=== PATIENT | female | born 1995 | race Two or more races ===

== ENCOUNTER 2018-04-15 12:45 | Inpatient (IN) | payer MEDICAID, OTHER ==
[~2018-04-15] VITALS: Ht 180.3 cm; Wt 142.9 kg
[2018-04-15 14:54] LABS: Urine Amorphous Crystal FEW /hpf (None Seen); Urine Bacteria FEW /hpf (None Seen); Urine Blood Negative /uL (Negative); Urine Mucus FEW (None Seen); Urine Specific Gravity 1.016 (1.001-1.035); Urine WBC 3 /hpf (0 - 5)
[2018-04-15 15:01] LABS: Alcohol, Urine < 3.0 mg/dL (0-5); Amphetamine Screen, Urine NEGATIVE (NEGATIVE); Barbiturate Scree,Urine NEGATIVE (NEGATIVE); Cannabinoid Screen, Urine NEGATIVE (NEGATIVE); Cocaine Screen, Urine NEGATIVE (NEGATIVE); Opiate Scree,Urine NEGATIVE (NEGATIVE); Phencyclidine Screen, Urine NEGATIVE (NEGATIVE)
[2018-04-15 15:04] LABS: Benzodiazephine Screen, Urine NEGATIVE (NEGATIVE)
[2018-04-15] MEDS ORDERED: LACT. RINGERS/OXYTOCIN 20UNITS 1,000 ML IV SCH (19:59)
[2018-04-15] MEDS ORDERED: LACTATED RINGER'S 1,000 ML IV SCH (19:59)
[2018-04-15] MEDS ORDERED: LIDOCAINE 2% (LOCAL ANESTH.) PF 5ml SDV ID ONE (20:00)
[2018-04-15] MEDS ORDERED: PHISODERM TOP SOLN 240ML BTL TOP PRN (20:00)
[2018-04-15] MEDS ORDERED: PENICILLIN G POT 5MIL/D5 50ML 50 ML IV ONE (20:00)
[2018-04-15] MEDS ORDERED: CARBOPROST TROMETHAMINE 250 MCG/1ML VIAL IM PRN (20:00)
[2018-04-15] MEDS ORDERED: WITCH HAZEL-GLYCERIN PAD TOP PRN (20:00)
[2018-04-15] MEDS ORDERED: METHYLERGONOVINE MALEATE 0.2 MG/ML AMP IM PRN (20:00)
[2018-04-15] MEDS ORDERED: DERMOPLAST 60ML BOTTLE TOP PRN (20:00)
[2018-04-15 21:37] LABS: Basophils # (auto) 0 uL; Basophils % (auto) 0.2 % (0.0-2.0); Eosinophils # (auto) 0 uL; Eosinophils % (auto) 0.4 % (0.0-7.0); Lymphocytes # (auto) 1.8 uL; Monocytes # (auto) 0.5 uL; Neutrophils # (auto) 3.5 uL
[2018-04-15 21:39] LABS: Hematocrit 34.8 % (36.0-46.0); Hemoglobin 11.5 g/dL (12.2-16.2); Lymphocytes % (auto) 30.8 % (10.0-50.0); Mean Corpuscular Hemoglobin 25.7 pg (28.0-32.0); Mean Corpuscular Hgb Conc. 32.9 g/dL (32.0-36.0); Monocytes % (auto) 8.2 % (0.0-12.0); Neutrophils % (auto) 60.4 % (37.0-80.0); Nucleated Red Blood Cells % 0.3 %; Platelet Count (auto) 205 10^3/uL (140-450); Red Blood Cells 4.47 10^6/uL (4.0-5.20); Red Cell Distribution Width 15.7 % (11.8-14.3); White Blood Cell 5.8 10^3/uL (4.4-10.8)
[2018-04-15 21:54] LABS: Albumin 2.8 g/dL (3.4-5.0); BUN/Creatinine Ratio 19.2; Calcium 8.6 mg/dL (8.5-10.1); Potassium 3.6 mmol/L (3.5-5.1)
[2018-04-15 21:57] LABS: Bilirubin, Total 0.5 mg/dL (0.2-1.0); INR 0.89 (0.9-1.15); Partial Thromboplastin Time 28.5 sec (23.78-33.04); Prothrombin Time 9.6 sec (9.27-12.13); Total Protein 7.2 g/dL (6.4-8.2)
[2018-04-15] MEDS ORDERED: BUTORPHANOL TARTRATE 2 MG/1 ML VIAL IV PRN (23:00)
[2018-04-16] MEDS: PENICILLIN G POTASSIUM 2,500,000 UNITS in D5W 5% 50 ML IV SCH ×6 (01:12→23:50)
[2018-04-17] VITALS (15 sets, daily range): BP systolic 93–127; BP diastolic 49–86
[2018-04-17 06:06] LABS: RPR Non Reactive (Non Reactive); Rubella Antibodies, IgG 3.91 index (Immune >0.99)
[2018-04-17] MEDS: PENICILLIN G POTASSIUM 2,500,000 UNITS in D5W 5% 50 ML IV SCH ×3 (07:30→12:00)
[2018-04-17] MEDS ORDERED: SUCCINYLCHOLINE CHLORIDE 20 MG/ML 10ML VIAL IV ONE (07:54)
[2018-04-17] MEDS ORDERED: fentaNYL CITRATE 100 MCG/2 ML VL ONE (08:18)
[2018-04-17] MEDS ORDERED: ROCURONIUM 10MG/ML 10ML VIAL IV ONE (08:21)
[2018-04-17] MEDS: LACTATED RINGER'S 1,000 ML IV SCH ×2 (09:11→17:52)
[2018-04-17] MEDS ORDERED: ONDANSETRON HCL 4 MG/2 ML VIAL IV PRN (09:15)
[2018-04-17] MEDS ORDERED: MORPHINE SULFATE 4 MG/ML SYR/VIAL IV PRN (09:15)
[2018-04-17] MEDS ORDERED: ceFAZolin 1GM/50ML 50 ML IV SCH (09:15)
[2018-04-17] MEDS ORDERED: OXYTOCIN 10UNIT/ML 1ML VIAL ONE (09:33)
[2018-04-17] MEDS ORDERED: HYDROmorphone HCL 2 MG/ML VL ONE (10:05)
[2018-04-17] MEDS ORDERED: ePHEDrine SULFATE 50 MG/ML AMP IV PRN (10:15)
[2018-04-17] MEDS ORDERED: hydrALAZINE HCL 20 MG/ML VL IV PRN (10:15)
[2018-04-17] MEDS ORDERED: HYDROmorphone HCL 2 MG/ML VL IV PRN (10:15)
[2018-04-17] MEDS: KETOROLAC TROMETH 30 MG/ML 1ML VIAL IV PRN ×2 (11:00→17:53)
[2018-04-17] MEDS ORDERED: ALUM & MAG HYDROX-SIMETH LIQ(MAALOX) 30 ML PO PRN (12:30)
[2018-04-17] MEDS: ceFAZolin 1GM/50ML 50 ML IV SCH (16:20)
[2018-04-18] MEDS: ceFAZolin 1GM/50ML 50 ML IV SCH ×2 (00:18→08:04)
[2018-04-18] MEDS: KETOROLAC TROMETH 30 MG/ML 1ML VIAL IV PRN ×2 (00:18→06:19)
[2018-04-18] MEDS: LACTATED RINGER'S 1,000 ML IV SCH ×2 (02:00→08:04)
[2018-04-18 03:00] VITALS: BP 106/56
[2018-04-18] MEDS ORDERED: TETANUS-DIPTH-ACEL PERTUSSIS 0.5ML SYRG IM ONE (05:00)
[2018-04-18] MEDS ORDERED: INFLUENZA QUAD 2018-2019 0.5 ML SYRG IM ONE (05:00)
[2018-04-18 07:00] VITALS: BP 118/70
[2018-04-18 07:55] LABS: Basophils # (auto) 0 uL; Eosinophils # (auto) 0 uL; Lymphocytes # (auto) 1.3 uL; Mean Corpuscular Volume 78.4 fL (80.0-100.0); Monocytes # (auto) 0.7 uL; Red Cell Distribution Width 15.4 % (11.8-14.3); White Blood Cell 7.2 10^3/uL (4.4-10.8)
[2018-04-18 07:57] LABS: Basophils % (auto) 0.2 % (0.0-2.0); Eosinophils % (auto) 0.2 % (0.0-7.0); Hemoglobin 7.7 g/dL (12.2-16.2); Lymphocytes % (auto) 18.3 % (10.0-50.0); Mean Corpuscular Hemoglobin 26.4 pg (28.0-32.0); Mean Corpuscular Hgb Conc. 33.7 g/dL (32.0-36.0); Neutrophils # (auto) 5.1 uL; Neutrophils % (auto) 71.3 % (37.0-80.0); Platelet Count (auto) 173 10^3/uL (140-450); Red Blood Cells 2.93 10^6/uL (4.0-5.20)
[2018-04-18] MEDS ORDERED: FAMOTIDINE 20 MG TAB PO SCH (10:00)
[2018-04-18 11:00] VITALS: BP 119/67
[2018-04-18] MEDS: FERROUS SULFATE 325 MG TAB PO SCH ×2 (12:00→18:04)
[2018-04-18] MEDS ORDERED: HYDROcodone-ACET 5/325MG TAB PO PRN ×2 (12:15)
[2018-04-18] MEDS ORDERED: BISACODYL 10 MG RECT SUPP PR PRN (12:15)
[2018-04-18] MEDS: IBUPROFEN 800 MG TAB PO PRN (12:41)
[2018-04-18] MEDS: SIMETHICONE 80 MG CHEWABLE TABLET PO SCH ×2 (12:42→21:44)
[2018-04-18 15:00] VITALS: BP 109/55
[2018-04-18] MEDS: PIPERACILLIN-TAZOB 3.375GM 100 ML IV SCH ×2 (15:41→21:34)
[2018-04-18] MEDS ORDERED: ACETAMINOPHEN 325 MG TAB PO PRN (18:30)
[2018-04-18 19:15] VITALS: BP 132/70
[2018-04-18 21:23] LABS: Urine Bacteria FEW /hpf (None Seen); Urine Blood 3+ /uL (Negative); Urine Specific Gravity 1.005 (1.001-1.035); Urine WBC 24 /hpf (0 - 5)
[2018-04-18] MEDS: DOCUSATE SOD 100 MG CAP PO SCH (21:44)
[2018-04-18 23:20] VITALS: BP 129/74
[2018-04-19 03:20] VITALS: BP 115/60
[2018-04-19] MEDS: PIPERACILLIN-TAZOB 3.375GM 100 ML IV SCH ×4 (04:00→21:39)
[2018-04-19] MEDS: SIMETHICONE 80 MG CHEWABLE TABLET PO SCH ×4 (06:00→21:38)
[2018-04-19 07:00] VITALS: BP 131/80
[2018-04-19 07:27] LABS: Basophils # (auto) 0 uL; Basophils % (auto) 0.1 % (0.0-2.0); Eosinophils # (auto) 0 uL; Eosinophils % (auto) 0.1 % (0.0-7.0); Lymphocytes # (auto) 0.8 uL; Mean Corpuscular Volume 78.6 fL (80.0-100.0); Monocytes # (auto) 0.6 uL; Neutrophils # (auto) 3.5 uL; Red Cell Distribution Width 15.3 % (11.8-14.3)
[2018-04-19 07:30] LABS: Hematocrit 22.6 % (36.0-46.0); Hemoglobin 7.5 g/dL (12.2-16.2); Lymphocytes % (auto) 17.2 % (10.0-50.0); Mean Corpuscular Hemoglobin 25.9 pg (28.0-32.0); Mean Corpuscular Hgb Conc. 32.9 g/dL (32.0-36.0); Monocytes % (auto) 11.8 % (0.0-12.0); Neutrophils % (auto) 70.8 % (37.0-80.0); Platelet Count (auto) 174 10^3/uL (140-450); Red Blood Cells 2.88 10^6/uL (4.0-5.20); White Blood Cell 4.9 10^3/uL (4.4-10.8)
[2018-04-19] MEDS: IBUPROFEN 800 MG TAB PO PRN ×2 (08:55→17:17)
[2018-04-19] MEDS: FERROUS SULFATE 325 MG TAB PO SCH ×3 (08:55→17:37)
[2018-04-19] MEDS: DOCUSATE CALCIUM 240 MG CAP PO SCH (10:01)
[2018-04-19] MEDS: DOCUSATE SOD 100 MG CAP PO SCH ×2 (10:01→21:38)
[2018-04-19 11:00] VITALS: BP 130/71
[2018-04-19] MEDS: ACETAMINOPHEN 325 MG TAB PO PRN (12:01)
[2018-04-19 15:00] VITALS: BP 121/72
[2018-04-19 19:00] VITALS: BP 127/71
[2018-04-19] MEDS ORDERED: PREN-96 PO (20:50)
[2018-04-19] MEDS ORDERED: FERR-20 PO (20:50)
[2018-04-19] MEDS ORDERED: CALC667C PO (20:50)
[2018-04-19 23:06] VITALS: BP 115/65
[2018-04-20 03:00] VITALS: BP 129/82
[2018-04-20] MEDS: PIPERACILLIN-TAZOB 3.375GM 100 ML IV SCH ×4 (03:40→22:05)
[2018-04-20] MEDS: ACETAMINOPHEN 325 MG TAB PO PRN (03:48)
[2018-04-20] MEDS: SIMETHICONE 80 MG CHEWABLE TABLET PO SCH ×4 (06:00→22:05)
[2018-04-20 06:51] VITALS: BP 135/89
[2018-04-20] MEDS: IBUPROFEN 800 MG TAB PO PRN ×2 (09:31→20:15)
[2018-04-20] MEDS: FERROUS SULFATE 325 MG TAB PO SCH ×3 (09:31→17:43)
[2018-04-20] MEDS: DOCUSATE CALCIUM 240 MG CAP PO SCH (09:31)
[2018-04-20] MEDS: DOCUSATE SOD 100 MG CAP PO SCH ×2 (09:32→22:05)
[2018-04-20 11:00] VITALS: BP 125/80
[2018-04-20 15:00] VITALS: BP 129/75
[2018-04-20 19:00] VITALS: BP 138/79
[2018-04-20 22:52] VITALS: BP 121/61
[2018-04-21 02:52] VITALS: BP 126/76
[2018-04-21] MEDS: PIPERACILLIN-TAZOB 3.375GM 100 ML IV SCH ×2 (04:20→10:00)
[2018-04-21 07:10] VITALS: BP 133/79
[2018-04-21] MEDS: FERROUS SULFATE 325 MG TAB PO SCH (07:59)
[2018-04-21] MEDS: SIMETHICONE 80 MG CHEWABLE TABLET PO SCH (08:06)
[2018-04-21] MEDS: DOCUSATE SOD 100 MG CAP PO SCH (09:35)
[2018-04-21] MEDS: DOCUSATE CALCIUM 240 MG CAP PO SCH (09:35)
== END 2018-04-21 10:45 | disposition home or self-care (01) | DRG 540 ==
LOC: OBSVTOIN 12:45 → LDRP 12:45
PROVIDERS: ADMIT Obstetrics & Gynecology; ATTEND Obstetrics & Gynecology
PROC: 3E0P7VZ Introduction of Hormone into Female Reproductive, Via Natural or Artificial Opening (ICD-10-PCS; 2018-04-17)
PROC: 10D00Z1 Extraction of Products of Conception, Low, Open Approach (ICD-10-PCS; principal; 2018-04-17 08:04)
DX: O48.0 Post-term pregnancy (principal); E66.01 Morbid (severe) obesity due to excess calories; O99.214 Obesity complicating childbirth; O62.1 Secondary uterine inertia; O99.824 Streptococcus B carrier state complicating childbirth; O76 Abnormality in fetal heart rate and rhythm complicating labor and delivery; G89.29 Other chronic pain; M54.9 Dorsalgia, unspecified; O75.89 Other specified complications of labor and delivery; Z37.0 Single live birth
CPT/HCPCS: 36415; 51702; 59025; 71046; 76805; 76818; 80053; 80307; 81001; 81002; 85025; 85610; 85730; 86592; 86762; 86850; 86900; 86901; 87040; 87340; 90715; 94760; 94762; 96361; 96365; 96366; 96374; A6257; J0330; J0690; J1885; J2001; J2540; J2543; J2590; J7060

== ENCOUNTER 2019-04-07 17:05 | Inpatient (IN) | payer MEDICAID, OTHER ==
[~2019-04-07] VITALS: Ht 180.3 cm; Wt 141.4 kg
[~2019-04-07 17:05] MED LIST: CALC667C PO; FERR-20 PO; PREN-96 PO
[2019-04-07 19:10] LABS: Urine WBC None Seen /hpf (0 - 5)
[2019-04-07 19:28] LABS: Basophils # (auto) 0 uL
[2019-04-07 19:30] LABS: Basophils % (auto) 0.3 % (0.0-2.0); Eosinophils # (auto) 0.1 uL; Eosinophils % (auto) 0.6 % (0.0-7.0); Hematocrit 38.1 % (36.0-46.0); Lymphocytes # (auto) 1.7 uL; Mean Corpuscular Hemoglobin 23.6 pg (28.0-32.0); Mean Corpuscular Hgb Conc. 31.6 g/dL (32.0-36.0); Mean Corpuscular Volume 74.8 fL (80.0-100.0); Monocytes # (auto) 0.7 uL; Monocytes % (auto) 6.5 % (0.0-12.0); Neutrophils # (auto) 7.9 uL; Neutrophils % (auto) 76.6 % (37.0-80.0); Nucleated Red Blood Cells % 0.1 %; Platelet Count (auto) 297 10^3/uL (140-450); Red Blood Cells 5.09 10^6/uL (4.0-5.20); White Blood Cell 10.4 10^3/uL (4.4-10.8)
[2019-04-07 19:30] LABS: Urine Bacteria NONE SEEN /hpf (None Seen); Urine Blood Negative /uL (Negative); Urine Specific Gravity 1.021 (1.001-1.035)
[2019-04-07 19:48] LABS: Calcium 9.4 mg/dL (8.5-10.1)
[2019-04-07 19:50] LABS: Bilirubin, Total 0.7 mg/dL (0.2-1.0); Total Protein 8.3 g/dL (6.4-8.2)
[2019-04-07] MEDS ORDERED: MORPHINE SULFATE 4 MG/ML SYR/VIAL IV ONE (20:00)
[2019-04-07] MEDS ORDERED: ONDANSETRON HCL 4 MG/2 ML VIAL IV ONE (20:00)
[2019-04-07] MEDS ORDERED: FAMOTIDINE (10MG/ML) 2ML VL IV ONE (20:00)
[2019-04-07] MEDS ORDERED: cefTRIAXone 1GM/50ML D5W 50 ML IV ONE (22:30)
[2019-04-07] MEDS ORDERED: NITROGLYCERIN 0.4 MG SL TAB SL PRN (22:30)
[2019-04-07] MEDS ORDERED: ONDANSETRON HCL 4 MG/2 ML VIAL IV PRN (22:30)
[2019-04-07] MEDS ORDERED: HYDROcodone-ACET 5/325MG TAB PO PRN (22:30)
[2019-04-07] MEDS ORDERED: MORPHINE SULF INJ 2 MG/ML SYRINGE 1ML IV PRN (22:30)
[2019-04-07] MEDS ORDERED: TEMAZEPAM 15 MG CAP PO PRN (22:30)
--- NOTE | 2019-04-07 23:25 | NUR ---
[facility] admit from [facility] admitted to [facility] after SBAR received. Patient oriented to ZOË ARELLANO RN primary RN, unit, room, bed, and unit policies regarding patient care and visiting hours. Patient weighed by bedscale and encouraged to call if they need something. All questions and concerns addressed, patient verbalized understanding.
[2019-04-08 06:18] VITALS: BP 92/47
[2019-04-08] MEDS ORDERED: ACETAMINOPHEN 325 MG TAB PO PRN (06:56)
[2019-04-08 07:47] LABS: Basophils # (auto) 0 uL; Eosinophils # (auto) 0.1 uL; Hemoglobin 11.4 g/dL (12.2-16.2); Mean Corpuscular Hemoglobin 24.1 pg (28.0-32.0); Monocytes # (auto) 0.4 uL; Nucleated Red Blood Cells % 0.1 %; Red Blood Cells 4.74 10^6/uL (4.0-5.20); White Blood Cell 5.5 10^3/uL (4.4-10.8)
[2019-04-08 07:48] LABS: Basophils % (auto) 0.8 % (0.0-2.0); Eosinophils % (auto) 2.4 % (0.0-7.0); Hematocrit 34.6 % (36.0-46.0); Lymphocytes # (auto) 2.3 uL; Mean Corpuscular Volume 72.9 fL (80.0-100.0); Monocytes % (auto) 7.2 % (0.0-12.0); Neutrophils # (auto) 2.7 uL; Neutrophils % (auto) 48.6 % (37.0-80.0); Platelet Count (auto) 272 10^3/uL (140-450); Red Cell Distribution Width 15.7 % (11.8-14.3)
--- NOTE | 2019-04-08 08:00 | NUR ---
Opening Shift Note Assumed care of patient, awake and alert. No S/S of distress/SOB or pain. Instructed on POC and to call for assist PRN, will continue to monitor for changes Q1hr and PRN.
[2019-04-08 08:03] LABS: Albumin 3.5 g/dL (3.4-5.0); Calcium 8.9 mg/dL (8.5-10.1); Potassium 4.1 mmol/L (3.5-5.1)
[2019-04-08 08:06] LABS: Bilirubin, Total 0.5 mg/dL (0.2-1.0); Total Protein 7.8 g/dL (6.4-8.2)
[2019-04-08 09:00] VITALS: BP 87/46
[2019-04-08 09:01] VITALS: BP 112/58
[2019-04-08] MEDS: cefTRIAXone 1GM/50ML D5W 50 ML IV SCH (09:02)
[2019-04-08] MEDS: FAMOTIDINE 20 MG TAB PO SCH ×2 (09:02→21:32)
[2019-04-08 09:47] LABS: Partial Thromboplastin Time 26.5 sec (23.64-32.05)
--- NOTE | 2019-04-08 10:26 | NUR ---
Received a call from SARAH (MRI) stated MRCP machine is unable to accommodate patient, recommended HIDA scan. Will notify hospitalist.
--- NOTE | 2019-04-08 10:51 | NUR ---
Dr. Keyes made aware of patient needs HIDA scan.
[2019-04-08 12:37] VITALS: BP 100/57
[2019-04-08] MEDS ORDERED: MIDAZOLAM HCL 1MG/1ML-2 ML VIAL ONE (12:58)
[2019-04-08] MEDS ORDERED: MEPERIDINE HCL (50 MG/ML) 1 ML VIAL ONE (12:58)
[2019-04-08] MEDS ORDERED: ROCURONIUM 10MG/ML 10ML VIAL IV ONE (12:58)
[2019-04-08] MEDS ORDERED: SODIUM CHLORIDE LOCK 10 ML ONE (12:58)
[2019-04-08] MEDS ORDERED: fentaNYL CITRATE 100 MCG/2 ML VL ONE (12:58)
[2019-04-08] MEDS ORDERED: ONDANSETRON HCL 4 MG/2 ML VIAL ONE (12:58)
[2019-04-08] MEDS ORDERED: fentaNYL CITRATE 100 MCG/2 ML VL IV PRN (13:30)
[2019-04-08] MEDS ORDERED: KETOROLAC TROMETH 30 MG/ML 1ML VIAL IV ONE (13:30)
[2019-04-08] MEDS ORDERED: METOCLOPRAMIDE HCL 5MG/ml INJ 2ml VIAL IV PRN (13:30)
[2019-04-08] MEDS ORDERED: HYDROmorphone HCL 2 MG/ML VL IV PRN (13:30)
[2019-04-08] MEDS ORDERED: MORPHINE SULFATE 4 MG/ML SYR/VIAL IV PRN (13:30)
[2019-04-08] MEDS ORDERED: PROPOFOL 10 MG/ML 20 ML IV ONE (13:47)
[2019-04-08] MEDS ORDERED: SUCCINYLCHOLINE CHLORIDE 20 MG/ML 10ML VIAL IV ONE (13:47)
[2019-04-08] MEDS ORDERED: ceFAZolin 1GM/50ML 50 ML IV ONE (13:58)
[2019-04-08] MEDS ORDERED: KETOROLAC TROMETH 60MG/2ML VIAL ONE (14:29)
[2019-04-08] MEDS ORDERED: NEOSTIGMINE 1 MG/ML INJ (10mg/10ML VIAL) ONE (14:29)
[2019-04-08] MEDS ORDERED: GLYCOPYRROLATE 0.2 MG/ML 1ML VIAL ONE (14:29)
--- NOTE | 2019-04-08 16:00 | NUR ---
Patient cam back from OR, 3 surgical incisions , dry, intact. No c/o of pain, patient have abdominal binder on it. Will continue to monitor.
[2019-04-08 17:03] VITALS: BP 129/74
[2019-04-08 22:00] VITALS: BP 127/70
[2019-04-09 04:33] LABS: Basophils # (auto) 0 uL; Basophils % (auto) 0.5 % (0.0-2.0); Eosinophils # (auto) 0.1 uL; Eosinophils % (auto) 2.4 % (0.0-7.0); Hematocrit 36.5 % (36.0-46.0); Hemoglobin 11.5 g/dL (12.2-16.2); Lymphocytes # (auto) 2.8 uL; Lymphocytes % (auto) 47.8 % (10.0-50.0); Mean Corpuscular Hemoglobin 23.9 pg (28.0-32.0); Mean Corpuscular Hgb Conc. 31.5 g/dL (32.0-36.0); Monocytes # (auto) 0.4 uL; Monocytes % (auto) 7.6 % (0.0-12.0); Neutrophils # (auto) 2.5 uL; Neutrophils % (auto) 41.7 % (37.0-80.0); Nucleated Red Blood Cells % 0.2 %; Platelet Count (auto) 249 10^3/uL (140-450); Red Cell Distribution Width 16.2 % (11.8-14.3); White Blood Cell 5.9 10^3/uL (4.4-10.8)
[2019-04-09 04:52] LABS: Albumin 3.4 g/dL (3.4-5.0); Calcium 8.3 mg/dL (8.5-10.1); Potassium 3.8 mmol/L (3.5-5.1)
[2019-04-09 04:55] LABS: Bilirubin, Total 0.5 mg/dL (0.2-1.0); Total Protein 7.2 g/dL (6.4-8.2)
[2019-04-09 04:57] VITALS: BP 128/62
[2019-04-09 09:00] VITALS: BP 137/82
[2019-04-09] MEDS: FAMOTIDINE 20 MG TAB PO SCH (09:45)
[2019-04-09] MEDS: cefTRIAXone 1GM/50ML D5W 50 ML IV SCH (09:45)
--- NOTE | 2019-04-09 09:45 | NUR ---
Dr. Calhoun in to see patient as hospitalist. She advanced patient's diet and states the patient can be discharged later today if she has no pain or nausea.
[2019-04-09 13:00] VITALS: BP 135/75
--- NOTE | 2019-04-09 13:00 | NUR ---
Patient given soft diet for lunch. Patient ate 100%. Denies nausea or pain. Will continue to monitor.
[2019-04-09 13:05] LABS: Hepatitis A Ab IgM Negative
[2019-04-09 13:09] LABS: Hepatitis B Core IgM Negative; Hepatitis B Surface Antigen Negative (Negative)
[2019-04-09 13:10] LABS: Hepatitis C Antibody Negative (Negative)
--- NOTE | 2019-04-09 13:32 | NUR ---
Page placed to Dr. Zacarias to see if patient is cleared by him for discharge.
--- NOTE | 2019-04-09 13:39 | NUR ---
Return call from Dr. Zacarias. He states the patient can be discharged today.
[2019-04-09 13:41] VITALS: BP 135/75
--- NOTE | 2019-04-09 14:15 | NUR ---
Patient states she needs an off-work note. Page placed to Dr. Calhoun.
== END 2019-04-09 14:50 | disposition home or self-care (01) | DRG 263 ==
LOC: ER 17:05 → OVERFLOW 17:06 → WEST WING 23:23
PROVIDERS: ADMIT Nurse Practitioner; ATTEND Internal Medicine Nephrology
PROC: 0FT44ZZ Resection of Gallbladder, Percutaneous Endoscopic Approach (ICD-10-PCS; principal; 2019-04-08 13:57)
DX: K80.10 Calculus of gallbladder with chronic cholecystitis without obstruction (principal); E66.01 Morbid (severe) obesity due to excess calories; Z68.41 Body mass index [BMI] 40.0-44.9, adult
CPT/HCPCS: 36415; 76705; 80053; 80074; 81001; 81025; 83690; 85025; 85610; 85730; 86850; 86900; 86901; G0378; J0330; J0690; J0696; J1885; J2250; J2405; J2704; J3490